=== PATIENT | female | born 1995 | race Caucasian/White ===

== ENCOUNTER 2016-12-25 17:31 | Emergency (ER) | payer OTHER ==
[~2016-12-25] VITALS: Ht 160 cm; Wt 91.0 kg
[~2016-12-25 17:31] MED LIST: BACTRIM DS 8001 TAB PO; BIRTH CONTROL PO; BODY PO; CEPHALEXIN500 M1 PO; EQUALINE PRENATAL PO; FLAGYL500 MG PO; HAIR PO; IBU800 M1 PO; MACROBID 1100 MG/CAP PO; MULTIPLE VITAMI1 CAP PO; NIACIN250 M2; NORCO 325 MG-51 TAB PO; PERCOCET 325 MG1 TA2 PO; PREDNISONE20 MG PO; SKIN PO; ULTRAM 50MG TAB50 MG PO; ZOFRAN8 MG PO; ZOLOFT 50MG50 MG PO
[2016-12-25 17:36] VITALS: TEMP 98.3
[2016-12-25 20:37] LABS: BASO % 0.2 % (0.0-2.0); EOS # 0.2 (0.0-0.7); EOS % 1.8 % (0-4.0); GRAN # 5.1 (1.4-6.5); GRAN % 50.4 % (42.2-75.2); HEMATOCRIT 37.2 % (37.0-47.0); HEMOGLOBIN 12.4 g/dl (12.5-16.0); LYMPH # 4.1 (1.2-3.4); LYMPH % 40.8 % (20.0-51.0); MEAN CELL VOLUME 87 fl (80.0-100.0); MEAN CORPUSCULAR HEMOGLOBIN 29 pg (27.0-31.0); MEAN CORPUSCULAR HGB CONC 33 g/dl (33.0-37.0); MEAN PLATELET VOLUME 10.1 fl (7.4-10.4); MONO # 0.7 (0.1-0.6); MONO % 6.6 % (1.7-9.3); PLATELET COUNT 301 K/mm3 (130-400); RED BLOOD COUNT 4.28 M/mm3 (4.10-5.30); REDCELL DISTRIBUTION WIDTH-CV 14.9 % (11.5-14.5); WHITE BLOOD COUNT 10.1 K/mm3 (4.8-10.8)
[2016-12-25 21:51] VITALS: BP 122/68; PULSE 86
[2016-12-25 22:45] LABS: CHLAMYDIA/TRACH by PCR Female NOT DETECTED
[2016-12-25 22:46] LABS: NEISSERIA GON by PCR Female NOT DETECTED
== END 2016-12-25 21:52 | disposition home or self-care (01) ==
LOC: COL.ER 17:31
PROVIDERS: Physician Assistant
DX: N93.8 Other specified abnormal uterine and vaginal bleeding (principal)

== ENCOUNTER 2017-01-27 18:46 | Emergency (ER) | payer OTHER ==
[~2017-01-27] VITALS: Ht 160 cm; Wt 90.0 kg
[2017-01-27 18:50] VITALS: TEMP 99.2
[2017-01-27 19:30] LABS: BASO % 0.3 % (0.0-2.0); EOS # 0.2 (0.0-0.7); GRAN # 6.7 (1.4-6.5); GRAN % 66.5 % (42.2-75.2); HEMATOCRIT 38.5 % (37.0-47.0); HEMOGLOBIN 12.9 g/dl (12.5-16.0); LYMPH # 2.3 (1.2-3.4); LYMPH % 22.7 % (20.0-51.0); MEAN CELL VOLUME 87 fl (80.0-100.0); MEAN CORPUSCULAR HEMOGLOBIN 29 pg (27.0-31.0); MEAN CORPUSCULAR HGB CONC 34 g/dl (33.0-37.0); MEAN PLATELET VOLUME 10.5 fl (7.4-10.4); MONO # 0.8 (0.1-0.6); MONO % 8.2 % (1.7-9.3); PLATELET COUNT 318 K/mm3 (130-400); RED BLOOD COUNT 4.41 M/mm3 (4.10-5.30); REDCELL DISTRIBUTION WIDTH-CV 13.7 % (11.5-14.5); WHITE BLOOD COUNT 10.1 K/mm3 (4.8-10.8)
[2017-01-27 19:41] LABS: ADJUSTED CALCIUM 9.3 mg/dL (8.4-10.2); ALANINE AMINOTRANSFERASE 31 U/L (9-52); ALBUMIN 4.7 gm/dL (3.5-5.0); ALKALINE PHOSPHATASE 80 U/L (50-136); ANION GAP 14 mmol/L (7-16); BILIRUBIN,TOTAL 0.6 mg/dL (0.0-1.0); BLOOD UREA NITROGEN 15 mg/dL (7-17); CALCIUM 9.9 mg/dL (8.4-10.2); CARBON DIOXIDE 26 mmol/L (22-30); CHLORIDE 103 mmol/L (98-107); CREATININE, serum 0.88 mg/dL (0.52-1.25); GLUCOSE 93 mg/dL (74-106); POTASSIUM 3.8 mmol/L (3.4-5.0); SODIUM 143 mmol/L (137-145); TOTAL PROTEIN 8.1 gm/dL (6.4-8.2)
[2017-01-27 19:43] LABS: ACETAMINOPHEN < 10 ug/mL (10-30); SALICYLATE < 1.0 mg/dL
[2017-01-27 20:08] LABS: AMPHETAMINE URINE NEGATIVE; BARBITURATES URINE NEGATIVE; BENZODIAZEPINES URINE NEGATIVE; BUPRENORPHINE URINE NEGATIVE; METHADONE URINE NEGATIVE; OPIATES URINE NEGATIVE; OXYCODONE URINE NEGATIVE; PHENCYCLIDINE URINE NEGATIVE; PROPOXYPHENE URINE NEGATIVE; THC CANNABINOIDS URINE NEGATIVE
[2017-01-27 21:59] VITALS: BP 130/72; PULSE 96
== END 2017-01-27 22:01 | disposition home or self-care (01) ==
LOC: COL.ER 18:46
PROVIDERS: Physician Assistant
DX: F32.9 Major depressive disorder, single episode, unspecified (principal); R45.851 Suicidal ideations; F17.210 Nicotine dependence, cigarettes, uncomplicated

== ENCOUNTER 2017-06-22 06:28 | Emergency (ER) | payer SELFPAY ==
[~2017-06-22] VITALS: Ht 160 cm; Wt 83.2 kg
[2017-06-22 06:33] VITALS: BP 117/82; PULSE 81; TEMP 97.5
== END 2017-06-22 08:08 | disposition home or self-care (01) ==
LOC: COL.ER 06:28
DX: S63.502A Unspecified sprain of left wrist, initial encounter (principal); X50.0XXA Overexertion from strenuous movement or load, initial encounter; Y99.0 Civilian activity done for income or pay

== ENCOUNTER 2017-08-15 17:00 | Emergency (ER) | payer SELFPAY ==
[~2017-08-15] VITALS: Ht 162.6 cm; Wt 86.4 kg
[2017-08-15 17:08] VITALS: BP 108/70; TEMP 98.1
[2017-08-15 18:39] VITALS: PULSE 90
== END 2017-08-15 18:40 | disposition home or self-care (01) ==
LOC: COL.ER 17:00
DX: J06.9 Acute upper respiratory infection, unspecified (principal); J45.909 Unspecified asthma, uncomplicated; F32.9 Major depressive disorder, single episode, unspecified; Z98.890 Other specified postprocedural states; Z87.891 Personal history of nicotine dependence

== ENCOUNTER 2018-01-22 00:12 | Emergency (ER) | payer MEDICAID ==
[2018-01-22 00:15] VITALS: BP 119/73; PULSE 96; TEMP 97.7
[2018-01-22] MEDS ORDERED: FLEXERIL 1010 MG/TAB PO (00:34)
== END 2018-01-22 01:02 | disposition home or self-care (01) ==
LOC: COL.ER 00:12
DX: M54.5 Low back pain (principal); X50.0XXA Overexertion from strenuous movement or load, initial encounter; Y93.01 Activity, walking, marching and hiking

== ENCOUNTER 2018-02-08 17:38 | Emergency (ER) | payer MEDICAID ==
[~2018-02-08] VITALS: Ht 162.6 cm; Wt 99.1 kg
[~2018-02-08 17:38] MED LIST changes: +FLEXERIL 1010 MG/TAB PO
[2018-02-08 17:41] VITALS: TEMP 98.7
[2018-02-08 18:17] LABS: BASO % 0.3 % (0.0-2.0); EOS # 0.2 (0.0-0.7); EOS % 2.4 % (0-4.0); GRAN % 58.1 % (42.2-75.2); HEMATOCRIT 35.8 % (37.0-47.0); HEMOGLOBIN 12.1 g/dl (12.5-16.0); LYMPH # 2.8 (1.2-3.4); LYMPH % 32.6 % (20.0-51.0); MEAN CELL VOLUME 84 fl (80.0-100.0); MEAN CORPUSCULAR HEMOGLOBIN 28 pg (27.0-31.0); MEAN CORPUSCULAR HGB CONC 34 g/dl (33.0-37.0); MEAN PLATELET VOLUME 9.9 fl (7.4-10.4); MONO # 0.6 (0.1-0.6); MONO % 6.4 % (1.7-9.3); PLATELET COUNT 296 K/mm3 (130-400); RED BLOOD COUNT 4.26 M/mm3 (4.10-5.30)
[2018-02-08 18:25] LABS: CALCIUM 9.6 mg/dL (8.4-10.2); CREATININE, serum 1.31 mg/dL (0.52-1.25); POTASSIUM 3.7 mmol/L (3.4-5.0)
[2018-02-08 20:20] VITALS: BP 112/68; PULSE 83
== END 2018-02-08 20:26 | disposition home or self-care (01) ==
LOC: COL.ER 17:38
PROVIDERS: Emergency Medicine
DX: S01.01XA Laceration without foreign body of scalp, initial encounter (principal); R55 Syncope and collapse; W18.39XA Other fall on same level, initial encounter
CPT/HCPCS: J7030

== ENCOUNTER → 2018-02-11 | Outpatient (CLI) | payer MEDICAID ==
[2018-02-11 14:15] LABS: CHOLESTEROL 287 mg/dL (120-200); CHOLESTEROL RISK RATIO 6.5; HDL CHOLESTEROL 44 mg/dL; LDL CHOLESTEROL 218 mg/dL; TRIGLYCERIDE 126 mg/dL
== END ==
LOC: COL.LAB 11:22
PROVIDERS: Family Medicine
DX: Z13.1 Encounter for screening for diabetes mellitus (principal); Z13.220 Encounter for screening for lipoid disorders; Z11.3 Encounter for screening for infections with a predominantly sexual mode of transmission

== ENCOUNTER → 2018-03-05 | Outpatient (CLI) | payer MEDICAID | LOC: COL.LAB 16:33 | DX: Z86.19 Personal history of other infectious and parasitic diseases (principal) ==

== ENCOUNTER 2018-03-08 16:12 | Emergency (ER) | payer MEDICAID ==
[~2018-03-08] VITALS: Ht 160 cm; Wt 95.5 kg
[2018-03-08 16:21] VITALS: BP 121/72; TEMP 98.2
[2018-03-08] MEDS ORDERED: FLEXERIL 1010 MG/TAB PO (16:26)
[2018-03-08] MEDS ORDERED: LEVOXYL0.075 MG PO (16:27)
[2018-03-08 17:13] LABS: COLLECTION METHOD CLEAN CATCH
[2018-03-08 17:17] LABS: BASO % 0.3 % (0.0-2.0); EOS # 0.2 (0.0-0.7); EOS % 2.9 % (0-4.0); GRAN % 52.3 % (42.2-75.2); LYMPH # 2.8 (1.2-3.4); LYMPH % 36.1 % (20.0-51.0); MEAN CELL VOLUME 88 fl (80.0-100.0); MEAN CORPUSCULAR HEMOGLOBIN 29 pg (27.0-31.0); MEAN CORPUSCULAR HGB CONC 33 g/dl (33.0-37.0); MONO # 0.6 (0.1-0.6); MONO % 8.1 % (1.7-9.3); PLATELET COUNT 283 K/mm3 (130-400); RED BLOOD COUNT 3.76 M/mm3 (4.10-5.30); REDCELL DISTRIBUTION WIDTH-CV 15.7 % (11.5-14.5)
[2018-03-08 17:18] LABS: HEMATOCRIT 33.1 % (37.0-47.0)
[2018-03-08 17:36] LABS: ALBUMIN 4.6 gm/dL (3.5-5.0); BILIRUBIN,TOTAL 0.5 mg/dL (0.0-1.0); CALCIUM 9.5 mg/dL (8.4-10.2); CREATININE, serum 1.04 mg/dL (0.52-1.25)
[2018-03-08 17:39] LABS: MUCOUS Present /lpf; PH 6 (5-8); URINE APPEARANCE Clear; URINE BACTERIA None Seen /hpf; URINE BILIRUBIN Negative (NEGATIVE); URINE BLOOD Negative (NEGATIVE); URINE COLOR Yellow; URINE GLUCOSE Negative (NEGATIVE); URINE KETONE Negative (NEGATIVE); URINE LEUKOCYTE ESTERASE Negative (NEGATIVE); URINE NITRATE Negative (NEGATIVE); URINE PROTEIN(semi-quant) Negative (NEGATIVE); URINE RBC 0-2 /hpf; URINE UROBILINOGEN Negative (NEGATIVE)
[2018-03-08 19:01] VITALS: PULSE 81
== END 2018-03-08 19:02 | disposition home or self-care (01) ==
LOC: COL.ER 16:12
PROVIDERS: Physician Assistant
DX: R51 Headache (principal)
CPT/HCPCS: J1200; J2765

== ENCOUNTER → 2018-05-06 | Outpatient (CLI) | payer MEDICAID ==
[~2018-05-06] MED LIST changes: +LEVOXYL0.075 MG PO
[2018-05-06 18:33] LABS: THYROID STIMULATING HORMONE 16.3 uIU/mL (0.465-4.680)
== END ==
LOC: COL.LAB 15:43
PROVIDERS: Family Medicine
DX: E03.9 Hypothyroidism, unspecified (principal)

== ENCOUNTER → 2018-06-18 | Outpatient (CLI) | payer MEDICAID ==
[2018-06-18 16:43] LABS: TSH w REFLEX 7.42 uIU/mL (0.465-4.680)
== END ==
LOC: COL.LAB 10:52
PROVIDERS: Family Medicine
DX: E03.9 Hypothyroidism, unspecified (principal)